=== PATIENT | male | born 1955 | race Caucasian/White ===

== ENCOUNTER → 2021-06-20 | Outpatient (CLI) | payer MEDICARE | LOC: HEART 5 15:22 | DX: I20.9 Angina pectoris, unspecified (principal); R07.9 Chest pain, unspecified; I10 Essential (primary) hypertension; R06.02 Shortness of breath | CPT/HCPCS: 93306 ==

== ENCOUNTER → 2021-07-06 | Outpatient (CLI) | payer MEDICARE ==
[~2021-07-06] MED LIST: ALL DAY ALLERGY10 M2 PO; BC POWDER PACK1 EACH PO; COZAAR50 MG PO; DILTIAZEM 12HR60 MG PO; LANTUS100 UNIT/1 SQ; METFORMIN HCL1000 M1 PO; NITROSTAT 0.40.4 MG SL; PROAIR DIGIHAL90 MCG INH; ST. JOSEPH ASPI81 M1 PO; TESTOSTERON100 MG/ML IM
[2021-07-06 06:49] LABS: HEMOGLOBIN 15.8 gm/dl (14.0-17.5); RED BLOOD COUNT 4.9 M/UL (4.20-5.50); WHITE BLOOD COUNT 6.8 K/UL (4.5-11.0)
[2021-07-06 07:08] LABS: BUN/CREATININE RATIO 15 (0-10)
== END ==
LOC: CATH 06-24 10:00
PROVIDERS: Internal Medicine Cardiovascular Disease
DX: I25.118 Atherosclerotic heart disease of native coronary artery with other forms of angina pectoris (principal); I10 Essential (primary) hypertension; E11.9 Type 2 diabetes mellitus without complications; Z79.82 Long term (current) use of aspirin; Z79.899 Other long term (current) drug therapy; Z79.84 Long term (current) use of oral hypoglycemic drugs; Z96.659 Presence of unspecified artificial knee joint; Z98.890 Other specified postprocedural states
CPT/HCPCS: 36415; 80048; 82962; 83036; 85025; 85610; 93005; 99152; 99153; C1769; C1887; J1644; J2250; J3010; J7030; Q9967